=== PATIENT | female | born 1950 | race Two or more races ===

== ENCOUNTER 2023-04-27 22:58 | Inpatient (IN) | payer MEDICARE, OTHER ==
[~2023-04-27] VITALS: Ht 152.4 cm; Wt 70.3 kg
[2023-04-27] MEDS ORDERED: METOPROLOL TARTRATE 25 MG TABLET PO ONE (23:30)
[2023-04-27] MEDS ORDERED: METOPROLOL TARTRATE INJ 5 MG/5 ML AMPUL IV ONE (23:30)
[2023-04-28 00:11] LABS: CALCIUM, SERUM 9.4 mg/dL (8.5-10.1); CARBON DIOXIDE 32 mmol/L (21-32); CHLORIDE 101 mmol/L (98-107); CREATININE 0.8 mg/dL (0.6-1.3); GLUCOSE 111 mg/dL (74-106); POTASSIUM 3.8 mmol/L (3.5-5.1); SODIUM SERUM 139 mmol/L (136-145); UREA NITROGEN, BLOOD 13 mg/dL (7-18)
[2023-04-28 00:18] LABS: BASOPHILS # (AUTO) 0.1 K/uL (0.0-0.2); BASOPHILS % (AUTO) 1.6 % (0.0-2.0); EOSINOPHILS % (AUTO) 1.2 % (0.0-6.0); HEMATOCRIT 40 % (33-45); HEMOGLOBIN 13.1 g/dL (11.5-14.8); LYMPHOCYTES # (AUTO) 0.8 K/uL (0.8-4.8); LYMPHOCYTES % (AUTO) 24.5 % (20.0-44.0); MEAN CORPUSCULAR HEMOGLOBIN 32 PG (26.0-33.0); MEAN CORPUSCULAR HGB CONC 33 g/dl (31.0-36.0); MEAN CORPUSCULAR VOLUME 97 fL (82-100); MONOCYTES # (AUTO) 0.3 K/uL (0.1-1.30); NEUTROPHILS # (AUTO) 2.1 K/uL (1.8-8.9); NEUTROPHILS % (AUTO) 64.7 % (43.0-81.0); PLATELET COUNT (AUTO) 95 K/uL (150-450); RED CELL DISTRIBUTION WIDTH 13.9 % (11.5-15.0); WHITE BLOOD COUNT (AUTO) 3.3 K/uL (4.3-11.0)
[2023-04-28 00:30] LABS: ALANINE AMINOTRANSFERASE 15 U/L (12-78); ALBUMIN 3.7 g/dL (3.4-5.0); ALKALINE PHOSPHATASE 67 U/L (46-116); ASPARTATE AMINOTRANSFERASE 19 U/L (15-37); BILIRUBIN,DIRECT 0.3 mg/dL (0.0-0.2); NT-PRO BNP 3147 pg/mL (0-125); TOTAL PROTEIN, SERUM 8.2 g/dL (6.4-8.2)
[2023-04-28 02:00] VITALS: BP 130/85; TEMP 98.8; O2SAT 97
[2023-04-28] MEDS ORDERED: ONDANSETRON HCL/PF 4 MG/2 ML VIAL IVP PRN (02:00)
[2023-04-28] MEDS ORDERED: ZOLPIDEM TARTRATE 5 MG TABLET PO PRN (02:00)
[2023-04-28] MEDS ORDERED: ACETAMINOPHEN 325 MG TABLET PO PRN (02:00)
[2023-04-28] MEDS ORDERED: Z GUARD REMEDY 4 OZ OINT TP PRN (02:00)
[2023-04-28] MEDS ORDERED: ENOXAPARIN SODIUM 40 MG/0.4 ML DISP.SYRIN SQ SCH (02:00)
[2023-04-28] MEDS ORDERED: MAGNESIUM HYDROXIDE 30 ML UDC PO PRN (02:00)
[2023-04-28] MEDS ORDERED: MAG HYDROX/AL HYDROX/SIMETH 30 ML UDC PO PRN (02:00)
[2023-04-28 03:04] LABS: ANISOCYTOSIS 1+; BASOPHILS % (MANUAL) 0 % (0.0-2.0); EOSINOPHILS % (MANUAL) 3 % (0-4); LYMPHOCYTES % (MANUAL) 22 % (16-48); MONOCYTES % (MANUAL) 10 % (0-11.0); NEUTROPHILS % (MANUAL) 65 (42-76); PLATELET ESTIMATE DECREASED
[2023-04-28] MEDS ORDERED: SPIR25TA6 PO (03:44)
[2023-04-28] MEDS ORDERED: ATEN25TA PO (03:44)
[2023-04-28] MEDS ORDERED: FURO-144 PO (03:44)
[2023-04-28 04:00] VITALS: BP 122/90; TEMP 98.4; O2SAT 95
[2023-04-28 08:00] VITALS: BP 131/77; TEMP 98.1; O2SAT 96
[2023-04-28] MEDS ORDERED: METH10TA2 PO (08:06)
[2023-04-28] MEDS ORDERED: ENOXAPARIN SODIUM 80 MG/0.8 ML DISP.SYRIN SQ SCH (09:27)
[2023-04-28] MEDS ORDERED: AMIODARONE 450 MG in IV D5W 241 ML IV PRN (09:30)
[2023-04-28] MEDS ORDERED: AMIODARONE 150 MG in IV D5W 100 ML IV ONE (09:30)
[2023-04-28] MEDS ORDERED: AMIODARONE 450 MG in IV D5W 250 ML IV PRN (09:30)
[2023-04-28 10:07] LABS: THYROID STIMULATING HORMONE 1.905 uIU/mL (0.358-3.74)
[2023-04-28] MEDS ORDERED: METHADONE PO SCH (10:30)
[2023-04-28 11:07] LABS: MAGNESIUM 1.9 mg/dL (1.8-2.4); PHOSPHORUS 3.5 mg/dL (2.5-4.9)
[2023-04-28] MEDS: APIXABAN 5 MG TABLET PO SCH ×2 (11:39→16:17)
[2023-04-28 12:00] VITALS: BP 123/88; TEMP 98.1; O2SAT 95
[2023-04-28 13:47] LABS: INR 1.16 (0.91-1.10); PROTHROMBIN TIME 12.2 SECS (9.2-11.1)
[2023-04-28 16:00] VITALS: BP 138/64; TEMP 97.4; O2SAT 96
[2023-04-28] MEDS ORDERED: AMIO200T5 PO (16:08)
[2023-04-28] MEDS ORDERED: APIX5TAB PO (16:08)
[2023-04-28] MEDS ORDERED: AMIODARONE HCL 200 MG TABLET PO SCH (17:00)
[2023-04-29] MEDS ORDERED: METHADONE HCL 10 MG TABLET PO SCH (08:30)
[2023-04-29] MEDS ORDERED: ATENOLOL 25 MG TABLET PO SCH (09:00)
[2023-04-29] MEDS ORDERED: SPIRONOLACTONE 25 MG TABLET PO SCH (09:00)
[2023-04-29] MEDS ORDERED: FUROSEMIDE 40 MG TABLET PO SCH (09:00)
== END 2023-04-29 05:08 | disposition home or self-care (01) | DRG 308 ==
LOC: ER 23:01 → TELE 04-28 01:23 → TELE-TD 04-28 10:37 → TELE1 04-28 13:02
PROVIDERS: ADMIT Nurse Practitioner Acute Care; ATTEND Nurse Practitioner Acute Care
DX: I48.91 Unspecified atrial fibrillation (principal); I50.33 Acute on chronic diastolic (congestive) heart failure; D68.69 Other thrombophilia; D69.6 Thrombocytopenia, unspecified; D72.819 Decreased white blood cell count, unspecified; E66.9 Obesity, unspecified; G89.29 Other chronic pain; I11.0 Hypertensive heart disease with heart failure; K42.9 Umbilical hernia without obstruction or gangrene; M19.90 Unspecified osteoarthritis, unspecified site; Z79.891 Long term (current) use of opiate analgesic; Z86.19 Personal history of other infectious and parasitic diseases; F11.11 Opioid abuse, in remission
CPT/HCPCS: 36415; 71045-TC; 80048-TC; 80076-TC; 83735-TC; 83880; 84100-TC; 84439-TC; 84443-TC; 84484-TC; 85025-TC; 85610-TC; 93307-TC; G0378; J0282; J3490; J7060

== ENCOUNTER 2024-07-02 23:31 | Emergency (ER) | payer BC, OTHER ==
[~2024-07-02] VITALS: Ht 160 cm; Wt 81.6 kg
[~2024-07-02 23:31] MED LIST: AMIO200T5 PO; APIX5TAB PO; FURO-144 PO; METH10TA2 PO; SPIR25TA6 PO
[2024-07-03 00:27] LABS: BASOPHILS % (AUTO) 0.6 % (0.0-2.0); EOSINOPHILS % (AUTO) 1.2 % (0.0-6.0); HEMATOCRIT 38 % (33-45); HEMOGLOBIN 12.4 g/dL (11.5-14.8); LYMPHOCYTES # (AUTO) 0.7 K/uL (0.8-4.8); LYMPHOCYTES % (AUTO) 25.7 % (20.0-44.0); MEAN CORPUSCULAR HEMOGLOBIN 32 PG (26.0-33.0); MEAN CORPUSCULAR HGB CONC 33 g/dl (31.0-36.0); MEAN CORPUSCULAR VOLUME 98 fL (82-100); MONOCYTES # (AUTO) 0.2 K/uL (0.1-1.30); MONOCYTES % (AUTO) 9.6 % (2.0-12.0); NEUTROPHILS # (AUTO) 1.6 K/uL (1.8-8.9); NEUTROPHILS % (AUTO) 62.9 % (43.0-81.0); PLATELET COUNT (AUTO) 86 K/uL (150-450); RED BLOOD CELL COUNT(AUTO) 3.89 MIL/uL (4.0-5.2); WHITE BLOOD COUNT (AUTO) 2.6 K/uL (4.3-11.0)
[2024-07-03] MEDS ORDERED: FUROSEMIDE 40 MG/4 ML VIAL ONE (00:28)
[2024-07-03] MEDS: FUROSEMIDE 40 MG/4 ML VIAL IV ONE (00:34)
[2024-07-03 00:47] LABS: CALCIUM, SERUM 8.9 mg/dL (8.5-10.1); CARBON DIOXIDE 33 mmol/L (21-32); CHLORIDE 101 mmol/L (98-107); CREATININE 0.8 mg/dL (0.6-1.3); GLUCOSE 131 mg/dL (74-106); POTASSIUM 4.3 mmol/L (3.5-5.1); SODIUM SERUM 138 mmol/L (136-145); UREA NITROGEN, BLOOD 11 mg/dL (7-18)
[2024-07-03 00:52] LABS: ALANINE AMINOTRANSFERASE 16 U/L (12-78); ALBUMIN 3.6 g/dL (3.4-5.0); ALKALINE PHOSPHATASE 80 U/L (46-116); ASPARTATE AMINOTRANSFERASE 24 U/L (15-37); BILIRUBIN,DIRECT 0.3 mg/dL (0.0-0.2); NT-PRO BNP 224 pg/mL (0-125); TOTAL PROTEIN, SERUM 7.7 g/dL (6.4-8.2)
[2024-07-03 01:06] LABS: INR 1.15 (0.91-1.10); PARTIAL THROMBOPLASTIN TIME 25.4 SEC (24.3-34.3); PROTHROMBIN TIME 12.1 SECS (9.2-11.1)
[2024-07-03 04:03] VITALS: BP 157/141; TEMP 98.4; O2SAT 95
== END 2024-07-03 05:00 | disposition home or self-care (01) ==
LOC: ER 23:56
DX: I11.0 Hypertensive heart disease with heart failure (principal); I50.9 Heart failure, unspecified; G89.29 Other chronic pain; Z79.01 Long term (current) use of anticoagulants; Z79.899 Other long term (current) drug therapy; Z90.49 Acquired absence of other specified parts of digestive tract; Z91.148 Patient's other noncompliance with medication regimen for other reason; Z60.2 Problems related to living alone
CPT/HCPCS: 99285; 93005; 85025; 80048; 80076; 36415 ×2; 84484 ×2; 85730; 83880; 96374; 71045; J1938